=== PATIENT | female | born 1995 | race Caucasian/White ===

== ENCOUNTER 2017-10-09 20:18 | Outpatient (CLI) | payer MEDICAID, OTHER ==
[2017-10-09 21:18] LABS: ADD UMIC NO; UR ASCORBIC ACID 20 mg/dL (NEGATIVE); UR BILIRUBIN (Dip) NEGATIVE (NEGATIVE); UR BLOOD (Dip) NEGATIVE (NEGATIVE); UR CLARITY CLEAR (CLEAR); UR COLOR YELLOW (YELLOW); UR GLUCOSE (Dip) NEGATIVE (NEGATIVE); UR KETONES (Dip) 2+ mg/dL (NEGATIVE); UR LEUKOCYTE ESTERASE (Dip) NEGATIVE Leu/ul (NEGATIVE); UR NITRITE (Dip) NEGATIVE (NEGATIVE); UR SPECIFIC GRAVITY (Dip) 1.021 (1.003-1.030); UR TOTAL PROTEIN (Dip) NEGATIVE (NEGATIVE); UR UROBILINOGEN (Dip) 1+ mg/dL (NEGATIVE)
[2017-10-09] MEDS: LACTATED RINGER'S 1,000 ML IV (21:53)
[2017-10-09] MEDS: TERBUTALINE 1 MG/ML INJ SC (23:39)
[2017-10-10] MEDS: TERBUTALINE 1 MG/ML INJ SC (02:24)
== END 2017-10-10 03:30 | disposition home or self-care (01) ==
LOC: OBT 20:18 → L-D 20:19
DX: O60.03 Preterm labor without delivery, third trimester (principal); Z3A.33 33 weeks gestation of pregnancy
CPT/HCPCS: 36415; 76817; 76818; 81003; 87086; 96360; 96361; 96372